=== PATIENT | female | born 1965 | race Caucasian/White ===

== ENCOUNTER 2017-10-21 16:37 | Inpatient (IN) | payer OTHER ==
--- NOTE | 2017-10-21 17:16 | EDPHY ---
H & P Stated Complaint: referred from MD for low H/H - Personal History LMP (Females 10-55): Hysterectomy Current Tetanus/Diphtheria Vaccine: Unsure Current Tetanus Diphtheria and Acellular Pertussis (TDAP): Unsure Tetanus Vaccine Date: unknown - Medical/Surgical History Hx Asthma: No Hx Chronic Respiratory Disease: No Hx Diabetes: Yes Hx Cardiac Disease: No Hx Renal Disease: No Hx Cirrhosis: No Hx Alcoholism: No Hx HIV/AIDS: No Hx Splenectomy or Spleen Trauma: No Other PMH: UC, Uterine cancer, gastric sleeve, parathyroidectomy, DM, HTN, - Social History Smoking Status: Never smoked Time Seen by Provider: 10/21/17 17:06 HPI/ROS: CHIEF COMPLAINT: Anemia HISTORY OF PRESENT ILLNESS: 52-year-old female with history of recent diagnosis of ulcerative colitis in early October 2017, admitted to [facility] for GI bleed, had made her 1st appointment with GI of the 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 The patient notes 13-15 episodes of hematochezia which has been occurring for several days. No abdominal pain. She is also complaining of fatigue, lightheadedness.. The patient shows me photos of her bowel movements which is grossly bloody. No back or flank pain. No nausea or vomiting. No hematemesis. REVIEW OF SYSTEMS: A ten point review of systems was performed and is negative with the exception of the items mentioned in the HPI PAST MEDICAL & SURGICAL HISTORY: Ulcerative colitis SOCIAL HISTORY: Nonsmoker PHYSICAL EXAM (Prior to examination, patient consented to physical exam, hands were washed and my usual and customary physical exam procedures followed) 1) GENERAL: Well-developed, well-nourished, alert and oriented. Appears to be in no acute distress. 2) HEAD: Normocephalic, atraumatic 3) HEENT: Pupils equal, round, reactive to light bilaterally. Sclera anicteric. 4) NECK: Full range of motion, no meningeal signs. 5) LUNGS: Clear auscultation bilaterally, no wheezes, no rhonchi, no retractions. 6) HEART: Regular rate and rhythm, no murmur, no heave, no gallop. 7) ABDOMEN: No guarding, no rebound, no focal tenderness, negative McBurney's, negative Ramirez's, negative Rovsing's, negative peritoneal sign, 8) MUSCULOSKELETAL: Moving all extremities, no focal areas of tenderness, no obvious trauma. No peripheral edema or discoloration. 9) BACK: No CVA tenderness, no midline vertebral tenderness, no fluctuance, no step-off, no obvious trauma, no visual or palpable abnormality. 10) SKIN: No rash, no petechiae. 11) Psychiatric: Patient is oriented X 3, there is no agitation. DIFFERENTIAL DIAGNOSIS: In no particular include but limited to upper GI bleed , lower GI bleed, ulcerative colitis (Muriel,Liza Sommer) Constitutional: Initial Vital Signs Temperature (C) 36.9 C 10/21/17 16:49 Heart Rate 95 10/21/17 16:49 Respiratory Rate 16 10/21/17 16:49 Blood Pressure 131/84 H 10/21/17 16:49 O2 Sat (%) 96 10/21/17 16:49 O2 Delivery Mode Room Air Allergies/Adverse Reactions: adhesive [Adhesive] Allergy (Verified 10/21/17 16:46) Unknown aspirin Allergy (Verified 10/22/17 15:02) GI bleed codeine [Codeine] Allergy (Verified 10/21/17 16:46) hydrocodone bitartrate [From Vicodin] Allergy (Verified 10/22/17 11:07) Home Medications: Medication Instructions Recorded Citalopram [celeXA 20 MG (RX)] 30 mg PO DAILY 01/30/13 Levothyroxine [Synthroid 175 mcg 175 mcg PO DAILY06 01/30/13 (RX)] Ferrous Sulfate [Iron] 325 mg PO BID 10/21/17 Herbals/Supplements -Info Only 1 ea PO DAILY 10/21/17 Mesalamine [Mesalamine] 1,600 mg PO TID 10/21/17 predniSONE [predniSONE TAPER] 1 each PO .EDIT DOSE INSTRUCT 10/21/17 Medical Decision Making ED Course/Re-evaluation: 5:15 p.m.: I reviewed the patient's old medical records from [facility]. The patient has brown stool on glove however describes hematochezia 13 -15 times per day, is complaining of lightheadedness, fatigue. Will obtain laboratory studies and re-evaluated. The patient has no complaints of abdominal pain has a soft, nontender abdomen on exam. Will hold on imaging at this time. 6:27 p.m.: Patient is noted to be anemic H&H 8 in . Recommended admission for GI bleed, anemia. I do not think that emergent transfusion is indicated. Consultation with hospitalist Dr. Charles who will admit, will consult GI. Discussed case with secondary supervising physician Dr. Kai Roque in the ER. 6:49 p.m.: Consultation with Dr. Crowley who will consult for GI (Liza Llamas) I did not see this patient while she was in the emergency department. However her care was discussed with the PA while the patient was in the department. I agree with treatment plan and management (Kai Roque S) - Data Points Laboratory Results: Laboratory Results 10/22/17 04:20 10/22/17 04:20 Microbiology Results: MICROBIOLOGY 10/21/17 22:38 Nasal, Sinus - Swab Respiratory Panel (PCR) - Final Human Metapneumovirus Medications Given: Citalopram Hydrobromide (Celexa) 30 mg PO DAILY KAMERON Stop: 04/20/18 08:59 Last Admin: 10/22/17 07:57 Dose: 30 mg Ferrous Sulfate (Ferrous Sulfate) 325 mg PO BID KAMERON Stop: 04/19/18 20:59 Last Admin: 10/22/17 07:51 Dose: 325 mg Levothyroxine Sodium (Synthroid) 175 mcg PO DAILY06 KAMERON Stop: 04/20/18 05:59 Last Admin: 10/22/17 05:11 Dose: 175 mcg Mesalamine (Asacol Hd) 1,600 mg PO TID KAMERON Stop: 04/19/18 21:59 Last Admin: 10/22/17 15:49 Dose: 1,600 mg Methylprednisolone Sodium Succinate (Solu-Medrol) 40 mg IVP Q8HRS KAMERON Stop: 04/19/18 21:59 Last Admin: 10/22/17 13:52 Dose: 40 mg Ondansetron HCl (Zofran) 4 mg IVP Q4 PRN PRN Reason: Nausea/Vomiting, Can't Take PO Stop: 04/19/18 20:36 Last Admin: 10/21/17 21:27 Dose: 4 mg Discontinued Medications Sodium Chloride (Ns) 1,000 mls @ 0 mls/hr IV ONCE ONE PRN Reason: Wide Open Stop: 10/21/17 17:28 Last Admin: 10/21/17 17:31 Dose: 1,000 mls Sodium Chloride (Ns) 1,000 mls @ 100 mls/hr IV CONT KAMERON Stop: 04/19/18 20:44 Last Admin: 10/22/17 07:43 Dose: 1,000 mls Influenza Virus Vaccine Quadrival (Fluarix Quad [id number]) 0.5 ml IM .ONCE ONE Stop: 10/22/17 16:31 Last Admin: 10/22/17 16:54 Dose: 0.5 ml Lorazepam (Ativan) 0.5 mg PO ONCE ONE Stop: 10/22/17 04:16 Last Admin: 10/22/17 04:14 Dose: 0.5 mg Pneumococcal Polyvalent Vaccine (Pneumovax 23) 0.5 ml IM .ONCE ONE Stop: 10/22/17 16:31 Last Admin: 10/22/17 16:57 Dose: 0.5 ml Departure - Departure Disposition: [facility] Inpatient Acute Clinical Impression: GI bleed Qualifiers: GI bleed type/associated pathology: unspecified gastrointestinal hemorrhage type Qualified Code(s): K92.2 - Gastrointestinal hemorrhage, unspecified Ulcerative colitis Qualifiers: Ulcerative colitis location: other ulcerative colitis Digestive disease complication type: other complication Qualified Code(s): K51.818 - Other ulcerative colitis with other complication Condition: Fair
[2017-10-21] MEDS ORDERED: NS 1,000 ML IV ONE (17:27)
[2017-10-21 17:46] LABS: PLATELET COUNT 486 10^3/uL (150-400)
[2017-10-21 17:50] LABS: INR 0.98 (0.83-1.16); PROTIME(PATIENT) 13.2 SEC (12.0-15.0)
[2017-10-21] MEDS ORDERED: ACETAMINOPHEN 325 MG TAB PO PRN (20:37)
[2017-10-21] MEDS ORDERED: PROMETHAZINE HCL 25 MG/ML INJ IVP PRN (20:37)
[2017-10-21] MEDS ORDERED: HYDROmorphONE/DILAUDID 1 MG/ML INJ IVP PRN (20:37)
[2017-10-21] MEDS ORDERED: ONDANSETRON 4 MG/2 ML VIAL IVP PRN (20:37)
[2017-10-21] MEDS ORDERED: HYDROmorphone HCL/NS 0.5 MG/ML SYR IVP PRN (20:44)
[2017-10-21] MEDS: FERROUS SULFATE 325 MG TAB PO SCH (21:20)
[2017-10-21] MEDS: MESALAMINE 800 MG TAB.DR PO SCH (21:20)
[2017-10-21] MEDS: methylPREDNISolone SOD SUCC 40 MG/ML VIAL IVP SCH (21:21)
[2017-10-21] MEDS: NS 1,000 ML IV SCH (21:25)
--- NOTE | 2017-10-21 21:48 | GHP ---
[f rep st] HISTORY AND PHYSICAL DATE OF ADMISSION: 10/21/2017 CHIEF COMPLAINT: Gastrointestinal bleed. HISTORY: The patient is a 52-year-old female just newly diagnosed with ulcerative colitis on October 03 at [facility]. She has been having 13 to 15 bright red blood per rectum stools per day. She has actually been having bloody stools for 4 months, but thought it was a complication of her gastric sleeve because she has been less compliant with diet recently and she thought that was the cause of the blood. She had an EGD and colonoscopy at [facility]. She was given mes alamine and prednisone for discharge. She followed up with GI of the [facility] as an outpatient this w knik and they checked blood work as an outpatient, found her to have ongoing severe anemia, and recomm ended she return to the hospital. She complains of bloating and occasional abdominal pain. Her oral intake has been normal. She has been battling an upper respiratory tract infection for the last 6 d ays. PAST MEDICAL HISTORY: 1. Ulcerative colitis. 2. Diabetes. 3. Gout. 4. Hyperparathyroidism, status post parathyroidectomy. 5. Uterine cancer status post hysterectomy. 6. Gastric sleeve for obesity 3 years ago. MEDICATIONS: Please see computer record for full detailed list. ALLERGIES: Adhesives and codeine. SOCIAL HISTORY: No smoking. No alcohol. 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 REVIEW OF SYSTEMS: Complete review of systems obtained. Review of systems negative regarding consti tutional, HEENT, GI, pulmonary, cardiovascular, , hematologic, musculoskeletal, endocrine, psych, e xcept for positives and negatives as noted in HPI. FAMILY HISTORY: Reviewed and noncontributory to presenting complaint. PHYSICAL EXAMINATION: GENERAL: Well-developed, well-nourished female in no acute distress. VITAL S IGNS: Temperature 37.0, pulse 80, blood pressure 136/86, saturating 97% on room air. EYES: Normal conjunctivae. Pupils equal and reactive to light. ENT: Normal ears and nose. Hearing intact. Nor mal lips and teeth. Oropharynx moist. NECK: Trachea midline. No thyromegaly. CHEST: Normal effo rt. LUNGS: Clear to auscultation bilaterally. CARDIOVASCULAR: Regular rhythm. No murmur. No lowe r extremity edema. ABDOMEN: Soft, nontender. No hepatosplenomegaly. SKIN: Warm, dry, intact. No rash. MUSCULOSKELETAL: No cyanosis or clubbing. Strength is 5/5 in upper and lower extremities. NEUROLOGIC: Cranial nerves intact. Normal sensation to light touch. PSYCH: Alert and oriented x3. Normal affect. Normal judgment and insight. Normal memory. LABORATORY DATA: White count 5.9, hematocrit 29.1, platelets 486. Sodium 137, potassium 4.8, chlori de 104, bicarb 20, BUN 18, creatinine 1.0, glucose 180. INR is 0.9. The MCV is 79.3. She is heme-n egative from below today. This case was discussed with Sommer Llamas in the emergency room. He has brianne calderon with Gastroenterology and they will see her in consultation. MEDICAL CHART REVIEW: Her last hospitalization here was in 2012 for low back pain and sciatica. ASSESSMENT/PLAN: 1. Newly diagnosed ulcerative colitis, still with significant gastrointestinal bleed. Will increase her steroid and place her on IV Solu-Medrol until she is improved. Gastroenterology will see her in the morning. 2. Acute blood loss anemia. Will follow with hydration. She did receive a blood transfusion at [facility]. 3. Iron deficiency anemia. Will check a ferritin in the morning. She has been told she might need IV iron. 4. Diabetes, diet controlled. This will be monitored. CODE STATUS: Full. ADMISSION STATUS: 1. Will admit to observation. Reevaluate tomorrow regarding ongoing need for hospitalization. 2. DVT prophylaxis. SCDs only given her GI bleed on presentation. /[id number]/MODL
[2017-10-22] MEDS ORDERED: LORazepam 0.5 MG TAB PO ONE ×2 (03:48→04:15)
[2017-10-22 04:31] LABS: PLATELET COUNT 416 10^3/uL (150-400)
[2017-10-22] MEDS: methylPREDNISolone SOD SUCC 40 MG/ML VIAL IVP SCH ×3 (05:11→20:49)
[2017-10-22] MEDS: LEVOTHYROXINE 175 MCG TAB PO SCH (05:11)
[2017-10-22] MEDS: NS 1,000 ML IV SCH (07:43)
[2017-10-22] MEDS: FERROUS SULFATE 325 MG TAB PO SCH ×2 (07:51→20:49)
[2017-10-22] MEDS: MESALAMINE 800 MG TAB.DR PO SCH ×3 (07:56→20:49)
[2017-10-22] MEDS: CITALOPRAM 20 MG TAB PO SCH (07:57)
--- NOTE | 2017-10-22 13:01 | GCON ---
[f rep st] CONSULTATION REQUESTING PHYSICIAN: Kristin Charles MD REASON FOR CONSULTATION: Bloody diarrhea. CHIEF COMPLAINT: Abdominal pain and bloody diarrhea. HISTORY OF PRESENT ILLNESS: Briefly, the patient is a 52-year-old pleasant female who was admitted to the hospital on 10/21/2017 for the evaluation of bloody stool and diarrhea. She reports that earlier this month she was evaluated at [facility] for similar symptoms. At that time, she underwent laboratory testing, stool testing, and colonoscopy and was diagnosed with ulcerative calderon colitis. She reports her diagnosis was described as moderate to severe. She was discharged home on oral mesalamine and oral prednisone. Over the ensuing handful of weeks, it was not clear that she was able to comply with her therapies. She took only a short course of steroids. She was apparently unable to afford the mesalamine medication. She was seen in our office recently and initiated on a higher dose of oral prednisone and had her mesalamine therapy changed; but she continued to decline and presents to the emergency room for admission. She reports no fevers, chills, or sweats. She has had no recent travel. She reports no change in her diet. She does have a family history of Crohn disease, but does not recall anybody with ulcerative colitis. Her health status recently has been otherwise well, although she admits to recent upper respiratory tract infection. ALLERGIES: Adhesives, codeine, and hydrocodone. PAST MEDICAL HISTORY: Includes ulcerative colitis, diabetes, gout, hyperparathyroidism, history of uterine cancer, and a prior history of gastric sleeve surgery for morbid obesity. OUTPATIENT MEDICATIONS: Celexa, Synthroid, prednisone, and iron. SOCIAL HISTORY: She is a nonsmoker. She drinks alcohol rarely. FAMILY HISTORY: Positive for a second-degree relative with Crohn disease. REVIEW OF SYMPTOMS: A 14-point review was undertaken with the patient and is negative except for the pertinent positives and negatives detailed in the history of present illness. PHYSICAL EXAMINATION: GENERAL: This is a well-developed female in no apparent distress. HEENT: Pupils are equal, round, and reactive to light and accommodation. Sclerae anicteric. Oropharynx clear. NECK: Supple without lymphadenopathy. HEART: Regular without murmur. ABDOMEN: Soft without focal tenderness. She has some grossly tender abdominal findings with deep palpation. She has normoactive bowel sounds. EXTREMITIES: Free of cyanosis, clubbing, and edema. NEUROLOGIC: Grossly nonfocal. SKIN: Warm and dry. PSYCHIATRIC: Normal mood and affect. LABORATORY TESTING: White count of 5.32, hemoglobin of 7.6, hematocrit of 26.0 , platelet count of 416. INR 0.98. Sodium of 140, potassium of 4.9, chloride of 109, bicarb of 23, BUN of 21, creatinine of 0.9. Iron of 12, TIBC of 355, iron sat of 3, ferritin of 10.5. Stool infectious testing is currently pending. Nasal swab revealed human Metapneumovirus virus. IMPRESSION/RECOMMENDATIONS: The patient was recently diagnosed with calderon ulcerative colitis. By her description, it sounds like it was moderate-to- severe at presentation. She has been initiated on steroid and mesalamine therapy, but her clinical course has been somewhat juan over the last 2-3 weeks. The differential diagnosis might also include infectious colitis, although she reports that stool testing has been negative on at least 1 occasion. I recommend IV Solu-Medrol, po mesalamine, repeating stool tests, and observing her clinical course. Hopefully, she will improve with this therapy and be able to discharge home on daily oral mesalamine as well as a prednisone taper. Pending response to the above treatments, we could consider initiating other therapies, such as Imuran, biological therapies, etc. We will defer that for now. /[id number]/MODL MTDD
--- NOTE | 2017-10-22 14:07 | HOSPPROG ---
Hospitalist Progress Note Assessment/Plan: Patient is a 52 y/o female who was diagnosed w ulcerative colitis on October 03 at [facility]. She has been having 13-15 bloody stools daily. She was given prednisone and mesalamine at al. Today is my first encounter w the patient , chart reviewed. *Ulcerative colitis -iv steroids, po mesalamine -may need biologics/ further f/u with GI *upper viral infection -PCR shows human metapneumovirus -on precautions *GI bleed due to this -hgb,hct have trended down *anemia, iron deficiency -on oral iron, will add vitamin C once she has less diarrhea *Diabetes -glucoses stable overall /diet controlled *HTN -does not have a diagnosis for this, if cont to be elevated; will treat -for now will add prn medications *insomnia -add Melatonin and prn Restoril *Plan: she needs to stay another midnight due to the above, her hgb and hct have decreased overnight and she has had multiple bloody stools throughout the day. Insurance is impacting her wanting to stay, but she is improving with the iv steroids. Will discuss w Dr Bay tomorrow; finances are an issue and hopefully she can resume her prednisone. Subjective: Kasandra is feeling a bit better this afternoon. Having less bloody stools. Objective: Vital Signs Temp Pulse Resp BP Pulse Ox 36.9 C 73 18 163/106 H 97 10/22/17 11:40 10/22/17 11:40 10/22/17 11:40 10/22/17 11:40 10/22/17 11:40 Microbiology 10/21/17 22:38 Respiratory Panel (PCR) - Final Nasal, Sinus - Swab Human Metapneumovirus Laboratory Results 10/22/17 04:20 10/22/17 04:20 10/21/17 10/22/17 10/23/17 05:59 05:59 05:59 Intake Total 1300 Balance 1300 PT 13.2 SEC (12.0-15.0) 10/21/17 17:12 INR 0.98 (0.83-1.16) 10/21/17 17:12 - Physical Exam Constitutional: not in pain, obese Eyes: PERRL Ears, Nose, Mouth, Throat: hearing normal Cardiovascular: regular rate and rhythym Respiratory: no respiratory distress Gastrointestinal: normoactive bowel sounds Skin: warm Musculoskeletal: full muscle strength Neurologic: AAOx3 Psychiatric: interacting appropriately ICD10 Worksheet Patient Problems: Problems Problem Status Onset GI bleed Acute Ulcerative colitis Acute
[2017-10-22] MEDS ORDERED: TEMAZEPAM 15 MG CAP PO PRN (14:59)
--- NOTE | 2017-10-22 15:10 | PDMN ---
Medical Necessity Medical necessity: M565 inflammatory bowel disease A-2 days: persistent bloody diarrhea, with H/H trending downward ( 8.7,7.6 29.1, 26.0) , anemia, also with URI( human metapneumovirus) HTN, DM, insomnia, further monitoring and tx needed > 2 midnights.
[2017-10-22] MEDS ORDERED: FLU VACC QS 2017-18 (3YR+)/PF 0.5 ML SYR (FLUARIX QUAD) IM ONE (16:30)
[2017-10-22] MEDS ORDERED: PNEUMOCOCCAL 0.5ML VACCINE VIAL IM ONE (16:30)
--- NOTE | 2017-10-22 17:22 | ASMTCMCOM ---
CM Note CM Note Notes: Pt admitted with inflammatory bowel disease/persistent bloody diarrhea. Spoke with [employer] MA[employer]; pt is very ill; GI to consult. Received phone call from Financial Counseling that pt's current insurance does not provide pt with much coverage & CM should be aware for dc planning. Financial Counseling to screen pt to see if she is eligible for further assistance. PT/OT not ordered. Anticipate dc home independently when medically stable. CM will follow if needs/changes. Date Signed: 10/22/2017 05:21 PM Electronically Signed By:Malia Christianson RN
[2017-10-22] MEDS: CEPACOL LOZENGE PO PRN (19:27)
--- NOTE | 2017-10-22 20:00 | HOSPPROG ---
Hospitalist Progress Note Assessment/Plan: x-cover note notified of BP 172/101 -chart reviewed -will start lisinopril 10mg -cont to monitor BP Objective: Vital Signs Temp Pulse Resp BP Pulse Ox 36.7 C 79 18 172/101 H 97 10/22/17 19:16 10/22/17 19:16 10/22/17 19:16 10/22/17 19:44 10/22/17 19:16 10/21/17 10/22/17 10/23/17 05:59 05:59 05:59 Intake Total 120 Balance 120 PT 13.2 SEC (12.0-15.0) 10/21/17 17:12 INR 0.98 (0.83-1.16) 10/21/17 17:12 ICD10 Worksheet Patient Problems: Problems Problem Status Onset GI bleed Acute Ulcerative colitis Acute
[2017-10-22] MEDS: LISINOPRIL 10 MG TAB PO SCH (20:49)
[2017-10-22] MEDS: MELATONIN 3 MG TAB PO SCH (20:49)
[2017-10-23 05:32] LABS: PLATELET COUNT 370 10^3/uL (150-400)
[2017-10-23] MEDS: methylPREDNISolone SOD SUCC 40 MG/ML VIAL IVP SCH ×3 (06:12→21:52)
[2017-10-23] MEDS: LEVOTHYROXINE 175 MCG TAB PO SCH (06:12)
[2017-10-23] MEDS: CEPACOL LOZENGE PO PRN ×2 (06:13→21:11)
[2017-10-23] MEDS ORDERED: BENZONATATE 100 MG CAP PO PRN (06:45)
[2017-10-23] MEDS: GUAIFENESIN/DM 10 ML UDCUP PO PRN ×2 (08:11→21:52)
[2017-10-23] MEDS: MESALAMINE 800 MG TAB.DR PO SCH ×3 (08:25→21:53)
[2017-10-23] MEDS: LISINOPRIL 10 MG TAB PO SCH (08:26)
[2017-10-23] MEDS: CITALOPRAM 20 MG TAB PO SCH (08:26)
[2017-10-23] MEDS: FERROUS SULFATE 325 MG TAB PO SCH ×2 (08:27→21:54)
--- NOTE | 2017-10-23 10:36 | HOSPPROG ---
Hospitalist Progress Note Assessment/Plan: Patient is a 52 y/o female who was diagnosed w ulcerative colitis on October 03 at [facility]. She has been having 13-15 bloody stools daily. She was given prednisone and mesalamine at tx. *Ulcerative colitis -iv steroids, po mesalamine -may need biologics/ further f/u with GI *upper viral infection -PCR shows human metapneumovirus -on precautions -has ongoing coughing, medications ordered for the *GI bleed due to this -hgb,hct have trended down -will get a repeat hemoglobin hematocrit this afternoon if she continues to trend down will give her a unit of blood *anemia, iron deficiency and acute blood loss anemia -on oral iron, will add vitamin C once she has less diarrhea *Diabetes -glucoses stable overall /diet controlled *HTN -had been on treatment but then have she had surgery, gastric sleeve, her blood pressure stabilized -restarted on Lisinopril with good results, should be tx on this *insomnia -add Melatonin and prn Restoril *Plan: Reviewed her care with Dr. Osiel mccarthy. He will follow up with her. Subjective: Patient is feeling poorly and tired today Objective: Vital Signs Temp Pulse Resp BP Pulse Ox 36.7 C 59 L 16 131/71 H 94 10/23/17 07:59 10/23/17 07:59 10/23/17 07:59 10/23/17 07:59 10/23/17 07:59 Laboratory Results 10/23/17 05:15 10/22/17 10/23/17 10/24/17 05:59 05:59 05:59 Intake Total 520 600 Balance 520 600 PT 13.2 SEC (12.0-15.0) 10/21/17 17:12 INR 0.98 (0.83-1.16) 10/21/17 17:12 - Physical Exam Constitutional: obese, uncomfortable Eyes: PERRL Ears, Nose, Mouth, Throat: hearing normal Cardiovascular: regular rate and rhythym Respiratory: no respiratory distress Skin: warm, No normal color (pale) Musculoskeletal: full muscle strength Neurologic: AAOx3 Psychiatric: interacting appropriately ICD10 Worksheet Patient Problems: Problems Problem Status Onset GI bleed Acute Ulcerative colitis Acute
--- NOTE | 2017-10-23 17:46 | SOAPPROG ---
SOAP Progress Note Assessment/Plan: Assessment: 1. Ulcerative Colitis - on steroids - slowly improving - complicated by low Fe Plan: 1. continue IV roids 2. continue regular diet 3. consider IV Fe replacement 4. may consider dc home on po roids tomorrow? pending clinical course 10/23/17 17:43 Subjective: CC: f/u colitis S: feeling unwell still, but improved less blood less pain less diarrhea no fever tolerating po no sob ongoing URI sx Objective: Vital Signs Temp Pulse Resp BP Pulse Ox 37 C 62 16 166/93 H 98 10/23/17 15:59 10/23/17 15:59 10/23/17 15:59 10/23/17 15:59 10/23/17 15:59 Laboratory Results 10/23/17 10:50 10/22/17 10/23/17 10/24/17 05:59 05:59 05:59 Intake Total 520 600 Balance 520 600 PT 13.2 SEC (12.0-15.0) 10/21/17 17:12 INR 0.98 (0.83-1.16) 10/21/17 17:12 Laboratory Tests 10/22/17 10/23/17 04:20 10:50 Hgb 7.8 L Hct 25.9 L Calcium 8.7 TIBC 355 Iron Saturation 3 L Ferritin 10.5 ICD10 Worksheet Patient Problems: Problems Problem Status Onset GI bleed Acute Ulcerative colitis Acute
[2017-10-23] MEDS: MELATONIN 3 MG TAB PO SCH (21:54)
[2017-10-24 04:54] VITALS: RESP 18
[2017-10-24] MEDS: CEPACOL LOZENGE PO PRN (05:02)
[2017-10-24] MEDS: methylPREDNISolone SOD SUCC 40 MG/ML VIAL IVP SCH ×2 (05:02→14:37)
[2017-10-24] MEDS: LEVOTHYROXINE 175 MCG TAB PO SCH (05:02)
[2017-10-24 08:07] VITALS: O2SAT 97
--- NOTE | 2017-10-24 09:24 | SOAPPROG ---
MARY Progress Note Assessment/Plan: Assessment: 1. Ulcerative Colitis - on steroids - slowly improving - complicated by low Fe Plan: 1. continue IV roids today 2. Consider DC home late afternoon/evening if doing well, after 2nd dose of solumedrol for the day and Fe infusion - if dc, please dc on PO mesalamine and prednisone taper (60mg poqd x3, 50mg poqd x3, 40mg poqd x7, 35mg poqd x7, 30 mg poqd x7, 25mg poqd x7, 20mg poqd x7, 15mg poqd x7, 10mg poqd x7, 5mg poqd x7) 3. continue regular diet 4. recommend IV Fe infusion today given anemia and chronic blood loss 5. I will arrange outpt f/u in GI clinic in next 1-2 weeks 10/24/17 09:25 Subjective: CC: f/u colitis S: doing much better only 2-3 BMs/d, still with blood but less no pain tolerating po intake without nausea no fever ongoing URI sx Objective: Vital Signs Temp Pulse Resp BP Pulse Ox 36.8 C 61 18 165/64 H 97 10/24/17 08:00 10/24/17 08:00 10/24/17 08:00 10/24/17 08:00 10/24/17 08:00 Laboratory Results 10/24/17 04:49 10/23/17 10/24/17 10/25/17 05:59 05:59 05:59 Intake Total 520 1100 Balance 520 1100 PT 13.2 SEC (12.0-15.0) 10/21/17 17:12 INR 0.98 (0.83-1.16) 10/21/17 17:12 Physical Exam - Physical Exam EENT: PERRL/EOMI Neck: full range of motion Respiratory: lungs clear Cardiac/Chest: normal peripheral pulses, regular rate, rhythm, No edema Abdomen: normal bowel sounds, non-tender, soft, No organomegaly Skin: normal color Extremities: normal range of motion Neuro/Psych: no motor/sensory deficits ICD10 Worksheet Patient Problems: Problems Problem Status Onset GI bleed Acute Ulcerative colitis Acute
[2017-10-24] MEDS: FERROUS SULFATE 325 MG TAB PO SCH (10:31)
[2017-10-24] MEDS: LISINOPRIL 10 MG TAB PO SCH (10:31)
[2017-10-24] MEDS: CITALOPRAM 20 MG TAB PO SCH (10:31)
[2017-10-24] MEDS: MESALAMINE 800 MG TAB.DR PO SCH (10:32)
[2017-10-24] MEDS ORDERED: SODIUM FERRIC GLUCONAT/SUCROSE 125 MG in NS 100 ML IV ONE (11:46)
[2017-10-24 11:48] VITALS: BP 167/95; PULSE 72; TEMP 97.7
--- NOTE | 2017-10-24 17:43 | GDS ---
[f rep st] DISCHARGE SUMMARY DISCHARGE DIAGNOSES: 1. Ulcerative colitis flare. 2. Upper respiratory infection with PCR positive for human metapneumovirus. 3. Awsgg-zj-cpveszx iron-deficiency anemia due to gastrointestinal bleed from colitis. 4. Diet-controlled diabetes mellitus. 5. Hypertension. 6. Insomnia. CONSULTANTS: Dr. Josue Crowley, [facility]. HOSPITAL COURSE BY PROBLEM: 1. Colitis: The patient was admitted to the hospital, where she was treated with IV steroids. She jimenez s continued to improve. She does continue to be anemic. On day of discharge, she is receiving a dose of IV iron. Her ferritin was low at 10.5. On day of discharge, the patient states that she is well an d would like to go home. She agrees to seek medical attention if she develops any signs of anemia. 2. Upper respiratory infection: The patient's upper respiratory infection was due to human metapneum ovirus per viral PCR. She has been treated supportively. Her respiratory status continues to improve. 3. Hypertension: The patient was started on lisinopril this hospital stay. She will need further out patient monitoring of her blood pressure. PHYSICAL EXAM: VITAL SIGNS: On day of discharge, blood pressure 167/95, pulse 72, respiratory rate 1 8, O2 saturation 97% on room air. Temperature afebrile. ABDOMEN: Soft, nontender, nondistended. No gu arding or rebound tenderness. Normoactive bowel sounds. DISCHARGE MEDICATIONS: Please refer to discharge medication reconciliation in [facility] for details. DISCHARGE INSTRUCTIONS: The patient will be discharged from the hospital where she should taper pred nisone as directed by GI. They have recommended 60 mg for 3 days, then 50 mg for 3 days, then 40 mg f or 7 days, then 35 mg for 7 days, then 25 mg for 7 days, then 20 mg for 7 days, then 15 mg for 7 days , then 10 mg for 7 days, then 5 mg for 7 days. She will need outpatient followup with GI. She may nee d further iron infusions. /[id number]/MODL
== END 2017-10-24 15:42 | disposition home or self-care (01) | DRG 386 ==
LOC: F3E 19:45 → OBSVTOIN 10-22 14:59
PROVIDERS: ADMIT Internal Medicine; ATTEND Family Medicine
DX: K51.911 Ulcerative colitis, unspecified with rectal bleeding (principal); D62 Acute posthemorrhagic anemia; D50.0 Iron deficiency anemia secondary to blood loss (chronic); J06.9 Acute upper respiratory infection, unspecified; E11.9 Type 2 diabetes mellitus without complications; G47.00 Insomnia, unspecified; I10 Essential (primary) hypertension; M10.9 Gout, unspecified; E21.3 Hyperparathyroidism, unspecified; Z85.42 Personal history of malignant neoplasm of other parts of uterus; Z98.84 Bariatric surgery status
CPT/HCPCS: G0008; G0009; G0378; J2405; J2916; J2920

== ENCOUNTER → 2018-08-06 | Outpatient (CLI) | payer OTHER | LOC: CIMAGING 10:16 | PROVIDERS: ATTEND Family Medicine | DX: M19.071 Primary osteoarthritis, right ankle and foot (principal); M25.771 Osteophyte, right ankle | CPT/HCPCS: 73610-PO ==

== ENCOUNTER → 2018-09-23 | Outpatient (CLI) | payer OTHER ==
[~2018-09-23] MED LIST: GADOBUTROL 10 ML VIAL IVP ONE; GLUCAGON HCL 0.3 MG in SYRINGE 0.3 ML IVP ONE
== END ==
LOC: FIMAGING 09:32
PROVIDERS: ATTEND Physician Assistant
DX: K51.011 Ulcerative (chronic) pancolitis with rectal bleeding (principal); N13.2 Hydronephrosis with renal and ureteral calculous obstruction; N28.1 Cyst of kidney, acquired
CPT/HCPCS: A9585; J1610

== ENCOUNTER → 2018-11-05 | Outpatient (CLI) | payer OTHER | LOC: FIMAGING 08:18 | PROVIDERS: ATTEND Urology | DX: N13.2 Hydronephrosis with renal and ureteral calculous obstruction (principal); N26.1 Atrophy of kidney (terminal); R91.1 Solitary pulmonary nodule ==

== ENCOUNTER → 2018-12-04 | Outpatient (CLI) | payer OTHER ==
[~2018-12-04] MED LIST changes: -GLUCAGON HCL 0.3 MG in SYRINGE 0.3 ML IVP ONE
== END ==
LOC: FIMAGING 09:40
PROVIDERS: ATTEND Family Medicine
DX: M50.321 Other cervical disc degeneration at C4-C5 level (principal); M50.322 Other cervical disc degeneration at C5-C6 level; M50.323 Other cervical disc degeneration at C6-C7 level; M48.02 Spinal stenosis, cervical region; M99.71 Connective tissue and disc stenosis of intervertebral foramina of cervical region; G95.20 Unspecified cord compression; R94.02 Abnormal brain scan
CPT/HCPCS: A9585